=== PATIENT | male | born 1950 | race Caucasian/White ===

== ENCOUNTER 2019-11-03 13:07 | Outpatient (CLI) | payer OTHER, SELFPAY | END 2019-11-03 13:08 | disposition home or self-care (01) | LOC: ANHAUDIO 13:08 | PROVIDERS: PCP Emergency Medicine; Visit Provider Emergency Medicine | DX: Z01.10 Encounter for examination of ears and hearing without abnormal findings (principal); Z92.89 Personal history of other medical treatment; H90.3 Sensorineural hearing loss, bilateral | CPT/HCPCS: 92557; 92567 ==

== ENCOUNTER 2019-12-06 09:00 | Outpatient (RCR) | payer OTHER, SELFPAY | END 2019-12-06 23:59 | disposition home or self-care (01) | LOC: ANHAUDIO 09:00 | PROVIDERS: PCP Emergency Medicine; Visit Provider Emergency Medicine | DX: Z46.1 Encounter for fitting and adjustment of hearing aid (principal) | CPT/HCPCS: 99199; V5014; V5257 ==

== ENCOUNTER 2019-12-07 16:01 | Outpatient (CLI) | payer OTHER, SELFPAY ==
--- NOTE | ~2019-12-07 | XR_ITS ---
EXAMINATION: XR shoulder RT min 2V EXAM DATE: 12/07/2019 16:28 INDICATION: No known recent injury provided at this time. Pain of the right shoulder. TECHNIQUE: The following right shoulder projections obtained: frontal projection with internal rotati on, frontal projection with external rotation, Grashey, and scapular Y view (4+ views). There is no prior study for comparison. FINDINGS: No evidence of right shoulder rotator cuff calcific tendinosis. There is mild glenohumera l and acromioclavicular joint primary osteoarthritis. There are no acute fractures or dislocations id entified. There is no subcutaneous gas. The soft tissue is unremarkable. There are no radiopaque foreign bodies. IMPRESSION: Mild right shoulder osteoarthritis. Reviewed, dictated and finalized at location B.
--- NOTE | ~2019-12-07 | XR_ITS ---
EXAMINATION: XR chest 2V EXAM DATE: 12/07/2019 16:28 INDICATION: Circulatory signs and symptoms. Pacemaker. TECHNIQUE: Frontal and lateral projections of the chest obtained and reviewed. Comparison is made to prior examination from 05/01/2015. FINDINGS: There is single lead pacemaker/AICD device seen with tip projecting over the expected loca tion of right ventricle. The lungs are clear. There are no pleural effusions. The cardiomediastinal silhouette is within normal limits. There is no pneumothorax suspected. The bones and soft tissues are unremarkable. Compared to previous exam, improvement in previously seen abnormal reticulation which could've been pulmonary edema. IMPRESSION: No acute cardiopulmonary findings. Reviewed, dictated and finalized at location B.
== END 2019-12-07 16:02 | disposition home or self-care (01) ==
PROVIDERS: PCP Emergency Medicine; Visit Provider Emergency Medicine
DX: R09.89 Other specified symptoms and signs involving the circulatory and respiratory systems (principal); M25.511 Pain in right shoulder; M19.011 Primary osteoarthritis, right shoulder
CPT/HCPCS: 71046; 73030

== ENCOUNTER 2019-12-21 08:59 | Outpatient (CLI) | payer OTHER, SELFPAY ==
--- NOTE | ~2019-12-21 | CT_ITS ---
EXAMINATION: CT shoulder RT w con DATE: 12/21/2019 09:51 INDICATION: Right shoulder pain TECHNIQUE: High resolution computed tomography (CT) of the right shoulder was performed with 100 mL O mnipaque-350 intravenous contrast. Additional sagittal and coronal reconstructions were performed. Au tomated exposure control and iterative reconstruction technique were employed. The dose-length produc t was 340.15 mGy-cm. COMPARISON: Right shoulder radiographs dated 12/07/2019 FINDINGS: Bone alignment is normal. No fracture. Mild acromioclavicular and glenohumeral osteoarthritis. No gle nohumeral joint effusion. No asymmetric muscular atrophy at the right shoulder girdle. No abnormally enhancing lesions identified. Moderate facet osteoarthritis at the right side of the lower cervical s pine. No pathologically enlarged lymphadenopathy at the right axilla, right hilum or visualized right neck or mediastinum. Partially visualized cardiac pacemaker lead extending into the right atrium and which on cementer helper topogram appears to follow the course of the coronary sinus into a coronary vein over lying the lateral wall of the left ventricle. Mild dependent atelectasis in the dependent right upper , middle and lower lobes. IMPRESSION: 1. Mild right acromioclavicular and glenohumeral osteoarthritis. No joint effusion or acute osseous a bnormality. Reviewed, dictated and finalized at location B. IMPRESSION: 1. Mild right acromioclavicular and glenohumeral osteoarthritis. No joint effus ion or acute osseous abnormality.
[2019-12-21 09:40] LABS: Estimated Glomerular Filt Rate 60
== END 2019-12-21 09:00 | disposition home or self-care (01) ==
PROVIDERS: PCP Emergency Medicine; Visit Provider Emergency Medicine
DX: M19.011 Primary osteoarthritis, right shoulder (principal)
CPT/HCPCS: 73201; Q9967

== ENCOUNTER 2020-02-17 14:55 | Outpatient (RCR) | payer OTHER, SELFPAY | END 2020-02-17 23:59 | disposition home or self-care (01) | LOC: ANHAUDIO 14:55 | PROVIDERS: PCP Emergency Medicine; Visit Provider Emergency Medicine | DX: Z46.1 Encounter for fitting and adjustment of hearing aid (principal) | CPT/HCPCS: 99199 ==

== ENCOUNTER 2020-02-21 11:46 | Outpatient (CLI) | payer OTHER, SELFPAY ==
--- NOTE | ~2020-02-21 | US_ITS ---
EXAMINATION: US venous doppler LE RT EXAM DATE: 02/21/2020 13:10 INDICATION: M79.89 - Other specified soft tissue disorders EDEMA TECHNIQUE: Multiple grayscale, color flow and Doppler images of the right lower extremity deep venous system were obtained and reviewed. Comparison is made to prior examination from 08/15/2013. FINDINGS: The right common femoral, femoral and profunda veins demonstrate normal color flow, respira tory variation, augmentation and compressibility. Compressibility, color flow confirmed within the r ight popliteal, posterior tibial, peroneal, and greater saphenous veins. IMPRESSION: 1. No right lower extremity deep venous thrombosis. Reviewed, dictated and finalized at location B. LEAD
== END 2020-02-21 11:47 | disposition home or self-care (01) ==
PROVIDERS: PCP Emergency Medicine; Visit Provider Emergency Medicine
DX: M79.89 Other specified soft tissue disorders (principal)
CPT/HCPCS: 93971

== ENCOUNTER 2020-03-14 06:42 | Outpatient (NON) | payer OTHER, SELFPAY ==
[2020-03-16 21:25] LABS: SARS-CoV-2 RNA PCR Positive
== END 2020-03-14 06:43 ==
LOC: ANHCOVIDDT 07:08
PROVIDERS: PCP Emergency Medicine; Visit Provider Emergency Medicine
DX: U07.1 COVID-19 (principal)
CPT/HCPCS: 87635; C9803; U0003

== ENCOUNTER 2020-05-11 09:10 | Outpatient (CLI) | payer OTHER, SELFPAY ==
--- NOTE | ~2020-05-11 | CT_ITS ---
EXAMINATION: CT cervical spine wo con EXAM DATE: 05/11/2020 09:46 INDICATION: Cervical radiculopathy. TECHNIQUE: Spiral CT of the cervical spine was performed without contrast. Axial images were reviewe d. Coronal and sagittal reformatted images were also reviewed. The dose-length product (DLP) for thi s examination was 405.97 mGy-cm. The exposure was tailored according to patient size (auto mA exposu re control), and iterative reconstruction (ASIR) was used as additional dose reduction technique. ere is no prior study for comparison. FINDINGS: Mild cervical disc disease. Moderate to severe left C3-4 facet arthropathy. Less arthritis at other levels as below. The vertebral bodies are aligned in the AP dimension. There are no acute f ractures identified. The odontoid process is intact. The lateral masses of C1 line up with C2. Preve rtebral soft tissue and pre-dens space are within normal limits. Pacemaker/AICD device. Level by level evaluation: C2-C3: Disc does not extend beyond the endplate margin. Uncovertebral joint arthropathy: Mild left. Facet joint arthropathy: Mild bilateral. Neural foraminal stenosis: No stenosis. Central canal stenosis: No stenosis. C3-C4: Disc does not extend beyond the endplate margin. Uncovertebral joint arthropathy: Mild bilateral. Facet joint arthropathy: Moderate to severe left, mild right. Neural foraminal stenosis: Moderate left. Central canal stenosis: No stenosis. C4-C5: There is a minimal diffuse disc bulge. Uncovertebral joint arthropathy: Moderate bilateral. Facet joint arthropathy: Mild to moderate bilateral. Neural foraminal stenosis: No stenosis. Central canal stenosis: No stenosis. C5-C6: There is a mild diffuse disc bulge. Uncovertebral joint arthropathy: Mild bilateral. Facet joint arthropathy: Moderate bilateral. Neural foraminal stenosis: No stenosis. Central canal stenosis: No stenosis. C6-C7: Disc does not extend beyond the endplate margin. Uncovertebral joint arthropathy: Mild bilateral. Facet joint arthropathy: Mild bilateral. Neural foraminal stenosis: No stenosis. Central canal stenosis: No stenosis. C7-T1: Disc does not extend beyond the endplate margin. Uncovertebral joint arthropathy: None. Facet joint arthropathy: Mild to moderate bilateral. Neural foraminal stenosis: No stenosis. Central canal stenosis: No stenosis. IMPRESSION: 1. Advanced left C3-4 facet arthropathy with moderate left neural foraminal stenosis. 2. Less spondylosis at other levels. Reviewed, dictated and finalized at location A. AURANT ASSISTANT IMPRESSION: 1. Advanced left C3-4 facet arthropathy with moderate left neural foraminal st enosis. 2. Less spondylosis at other levels.
== END 2020-05-11 09:11 | disposition home or self-care (01) ==
PROVIDERS: PCP Emergency Medicine; Visit Provider Pain Medicine Pain Medicine
DX: M54.12 Radiculopathy, cervical region (principal)
CPT/HCPCS: 72125

== ENCOUNTER 2020-06-06 09:06 | Outpatient (CLI) | payer OTHER, SELFPAY ==
[2020-06-06 10:00] LABS: Prothrombin Time 13.8 Seconds (11.1-14.7)
== END 2020-06-06 09:07 | disposition home or self-care (01) ==
PROVIDERS: PCP Emergency Medicine; Visit Provider Nurse Practitioner Adult Health
DX: Z79.01 Long term (current) use of anticoagulants (principal)
CPT/HCPCS: 36415; 85610

== ENCOUNTER 2020-06-22 11:23 | Outpatient (RCR) | payer SELFPAY | END 2020-06-22 23:59 | disposition home or self-care (01) | LOC: ANHAUDIO 11:23 | PROVIDERS: PCP Emergency Medicine; Visit Provider Emergency Medicine | DX: Z46.1 Encounter for fitting and adjustment of hearing aid (principal) | CPT/HCPCS: 99199 ==

== ENCOUNTER 2021-01-07 17:56 | Emergency (ER) | payer OTHER, SELFPAY ==
[2021-01-07 18:20] VITALS: BP 144/62; PULSE 56; RESP 16; TEMP 36.4; O2SAT 100
[2021-01-07 20:20] VITALS: BP 122/70; PULSE 71; RESP 18; O2SAT 99
[2021-01-07 20:37] LABS: Add Urine Microscopic? YES; Appearance Urine Clear (Clear); Bilirubin Urine Negative (Negative); Blood Urine 1+ (Negative); Color Urine Yellow (Yellow); Glucose Urine UA Negative (Negative); Ketones Urine Negative (Negative); Leukocyte Esterase Ur Negative LEU/UL (Negative); Nitrate Urine Negative (Negative); Protein Urine Negative (Negative); RBC Urine 0-2 /hpf (0-2); Specific Grav Ur 1.013 (1.001-1.035); Urobilinogen Urine Negative mg/dL (<2.0); WBC Urine 0-3 /hpf
--- NOTE | 2021-01-07 21:34 | ED.GENADULT ---
HPI - General Adult General Chief complaint: Urogenital-Male Stated complaint: Constipation, unable to urinate Time Seen by Provider: 01/07/21 20:30 History of Present Illness HPI narrative: Patient is a 70-year-old gentleman presents the emergency department with chief complaint of constipation and urinary retention. The patient reports he just had surgery and a new lead was placed for his pacemaker. The patient states that he had noticed not had a bowel movement in several days and reached a point that he was unable to urinate. Patient states he started taking a stool softener without results and reports he feels as though he needs to have a bowel movement but just cannot get things moving. Patient denies vomiting denies abdominal pain states that he felt as though his bladder was about to explode. Related Data Home Medications Medication Instructions Recorded Confirmed aspirin 81 mg tablet,delayed 81 mg PO DAILY 04/01/19 04/03/20 release clopidogrel 75 mg tablet 75 mg PO DAILY 04/01/19 04/03/20 finasteride 5 mg tablet 5 mg PO DAILY 04/01/19 04/03/20 atorvastatin 20 mg tablet 20 mg PO DAILY 02/21/20 04/03/20 carvedilol 12.5 mg tablet See Rx Instructions .ROUTE .COMPLEX 02/21/20 04/03/20 evolocumab 140 mg/mL subcutaneous 140 mg SUBCUT MONTHLY ml 02/21/20 04/03/20 pen injector sacubitril 24 mg-valsartan 26 mg 1 tablet PO BID tablet 02/21/20 04/03/20 tablet Allergies Allergy/AdvReac Type Severity Reaction Status Date / Time No Known Allergies Allergy Verified 04/03/20 09:33 [facility] Past Medical History Medical History Cardiac defibrillator in place Cervical radiculopathy due to degenerative joint disease of spine Chest congestion Subacromial impingement of right shoulder Weight gain Surgical History Surgical History History of cardiac defibrillator placement Family History Family History Father Malignant neoplasm of prostate, Onset Age: 64 Mother Family history of dementia Other Heart disease Social History Social History Smoking packs per day: 1 Smoking cigarettes per day: 20.0 Years smoked: 30 Smoking pack-years: 30.00 Smoking status: Never smoker Smoking end date: 04/20/99 Alcohol intake: current Drinks per week: 2 Substance use: never Substance use type: does not use Exam Narrative: GENERAL: Well-appearing, well-nourished, and in no acute distress. HEAD: Normocephalic, atraumatic. EYES: PERRLA and EOMI. ENT: Nares clear, no rhinorrhea or epistaxis. Mucous membranes moist. NECK: Supple. CHEST: Clear to auscultation. No respiratory distress. HEART: Regular rate and rhythm. No murmur heard. Normal peripheral pulses. ABDOMEN: Soft, nontender, nondistended, normal active bowel sounds. : Rectal exam showed a large amount of stool in the rectal vault stool was manually disimpacted EXTREMITIES: Normal range of motion. No edema. SKIN: Warm, dry, no rash. NEURO: No focal deficits. Alert and oriented x3. PSYCH: Normal mood and affect. Course Course Emergency Course: Patient was found to have greater than a liter of urine present in the bladder a Hanna catheter was placed with good urinary return. The patient was able to have a large bowel movement in the emergency department and feels much better at this time Vital Signs Vital signs: Vital Signs Temperature 36.4 C 01/07/21 18:20 Pulse Rate 56 L 01/07/21 18:20 Respiratory Rate 16 01/07/21 18:20 Blood Pressure 144/62 H 01/07/21 18:20 Pulse Oximetry 100 01/07/21 18:20 Temperature 36.4 C 01/07/21 18:20 Pulse Rate 71 01/07/21 20:20 Respiratory Rate 18 01/07/21 20:20 Blood Pressure 122/70 01/07/21 20:20 Pulse Oximetry 99 01/07/21 20
[2021-01-07] MEDS: MAGNESIUM CITRATE 300 ML BTL PO (22:12)
[2021-01-07 22:13] VITALS: BP 116/78; PULSE 77; RESP 15; O2SAT 96
[2021-01-07 22:14] VITALS: BP 116/78; PULSE 77; RESP 15; O2SAT 96
== END 2021-01-07 22:16 | disposition home or self-care (01) ==
PROVIDERS: Emergency Medicine; Emergency Provider Emergency Medicine; PCP Emergency Medicine
DX: R33.9 Retention of urine, unspecified (principal); K56.41 Fecal impaction; Z79.82 Long term (current) use of aspirin; Z95.810 Presence of automatic (implantable) cardiac defibrillator; Z87.891 Personal history of nicotine dependence
CPT/HCPCS: 51702; 81001; 99283; A9270

== ENCOUNTER 2021-01-08 16:09 | Emergency (ER) | payer OTHER, SELFPAY ==
--- NOTE | ~2021-01-08 | CT_ITS ---
EXAMINATION: CT abdomen pelvis w con DATE: 01/08/2021 18:09 INDICATION: Abdominal pain TECHNIQUE: Computed tomography (CT) of the abdomen and pelvis was performed with 100 mL Omnipaque-350 intravenous contrast. Automated exposure control and iterative reconstruction technique were employe d. The dose-length product was 904.55 mGy-cm. COMPARISON: None FINDINGS: Mild emphysema and mild atelectasis/scarring at the dependent right lower lobe. 4 mm right middle lob e nodule. Heart size normal. No pericardial effusion. There are 2 cardiac pacemaker/AICD leads extend ing into the right ventricle. Small region of focal hepatic steatosis along the ligamentum teres. Gal lbladder, spleen, pancreas and bilateral adrenal glands are normal. Bilateral renal cysts, the larges t a parapelvic cyst on the left measuring 5.4 cm in maximal diameter. There are few scattered diverti cula predominantly along the sigmoid colon without adjacent from 3 change to suggest diverticulitis. Small bowel and appendix are normal. There is a Hanna catheter within the decompressed bladder. Marke d prostatomegaly. No free intraperitoneal gas or fluid. No pathologically enlarged abdominal or pelvi c lymphadenopathy. Small bilateral fat-containing inguinal hernias. There is calcified atherosclerosi s of the aorta and the lateral iliac arteries. Moderate lumbar spondylosis. IMPRESSION: 1. No acute intra-abdominal/pelvic process. 2. Mild diverticulosis. 3. Marked prostatomegaly. 4. Small bilateral fat-containing inguinal hernias. Reviewed, dictated and finalized at location A.
[2021-01-08 16:19] VITALS: BP 138/83; PULSE 86; RESP 16; TEMP 36.9; O2SAT 98
[2021-01-08 16:59] LABS: Basophils Percent Auto 0.1 % (0.2-1.2); Eosinophils Percent Auto 0.1 % (0-4.4); Hematocrit 44.4 % (42.0-52.0); Hemoglobin 15.1 g/dL (14.0-18.0); Immature Granulocyte Absolute 0.06 K/mm3 (0.00-0.031); Immature Granulocyte Percent A 0.4 % (0-0.5); Lymphocytes Absolute Auto 1.95 K/mm3 (0.9-3.2); Lymphocytes Percent Auto 12.7 % (18.3-44.2); Mean Corpuscular Hemoglobin 31.5 pg (26-34); Mean Corpuscular Volume 92.5 fl (80-100); Mean Platelet Volume 10.7 fl (7.4-10.4); Monocytes Percent Auto 6.3 % (2.6-8.5); Neutrophils Absolute Auto 12.4 K/mm3 (1.3-6.7); Neutrophils Percent Auto 80.4 % (45.5-73.1); Platelet Count Result 224 k/mm3 (150-375); White Blood Count 15.4 K/mm3 (4.5-10.0)
[2021-01-08 17:12] LABS: Alanine Aminotransferase 31 U/L (4-50); Albumin Level 4.6 g/dL (3.5-5.1); Alkaline Phosphatase 74 U/L (38-126); Anion Gap 10 mmol/L (8-16); Aspartate Amino Transferase 38 U/L (17-59); Bilirubin,Total 1.6 mg/dL (0.2-1.3); Blood Urea Nitrogen 19 mg/dL (9-20); Calcium 9.3 mg/dL (8.4-10.2); Carbon Dioxide 25 mmol/L (22-30); Chloride 98 mmol/L (98-107); Estimated CRCL calculation 43 ml/min; Estimated Glomerular Filt Rate 54; Glucose 148 mg/dL (65-110); Lactic Acid Reflex 1.6 mmol/L (0.7-2.1); Lipase 56 U/L (23-300); Partial Thromboplastin Time 26.4 SECONDS (22.3-36.8); Potassium 4.5 mmol/L (3.4-5.0); Prothrombin Time 13.2 Seconds (11.1-14.7); Sodium 133 mmol/L (137-145)
--- NOTE | 2021-01-08 17:18 | PC.NURSE ---
1710-PATIENT ARRIVED WITH #16 SOTO FROM YESTERDAY'S ER VISIT. PER ERP ORDER, SOTO REMOVED WITHOUT DIFFICULTY. #16 SOTO INSERTED WITHOUT DIFFICULTY. PATIENT TOLERATED WELL. PATIENT WITH IMMEDIATE RETURN OF 1100 CC OF DARK RED URINE. UPDATE TO ERP.
--- NOTE | 2021-01-08 17:58 | ED.GENADULT ---
HPI - General Adult General Chief complaint: Abdominal Pain Stated complaint: rectal bleeding &bleeding from kilgore catheter Time Seen by Provider: 01/08/21 16:12 History of Present Illness HPI narrative: Patient is a 70-year-old gentleman who presents the emergency department with chief complaint of blood in his Kilgore not draining Kilgore. Patient reports that he was seen in the ER yesterday for urinary retention and constipation patient was able to have a bowel movement and had a Kilgore catheter placed that had over a liter of urine in his bladder. The patient went home had multiple bowel movements and then noticed that his Kilgore catheter stopped working and noticed there was some blood around the catheter. The patient states that he had several bowel movements that have had some blood in them but mostly just more loose stool and has had about 40 bowel movements after receiving magnesium citrate to help clear them out. Patient denies vomiting Related Data Home Medications Medication Instructions Recorded Confirmed aspirin 81 mg tablet,delayed 81 mg PO DAILY 04/01/19 04/03/20 release clopidogrel 75 mg tablet 75 mg PO DAILY 04/01/19 04/03/20 finasteride 5 mg tablet 5 mg PO DAILY 04/01/19 04/03/20 atorvastatin 20 mg tablet 20 mg PO DAILY 02/21/20 04/03/20 carvedilol 12.5 mg tablet See Rx Instructions .ROUTE .COMPLEX 02/21/20 04/03/20 evolocumab 140 mg/mL subcutaneous 140 mg SUBCUT MONTHLY ml 02/21/20 04/03/20 pen injector sacubitril 24 mg-valsartan 26 mg 1 tablet PO BID tablet 02/21/20 04/03/20 tablet Allergies Allergy/AdvReac Type Severity Reaction Status Date / Time No Known Allergies Allergy Verified 04/03/20 09:33 Review of Systems Review of Systems: A 10 system review of systems was completed on the patient and is negative except for what is stated in the HPI. Nursing and ancillary documentation was reviewed. [facility] Past Medical History Medical History Cardiac defibrillator in place Cervical radiculopathy due to degenerative joint disease of spine Chest congestion Subacromial impingement of right shoulder Weight gain Surgical History Surgical History History of cardiac defibrillator placement Family History Family History Father Malignant neoplasm of prostate, Onset Age: 64 Mother Family history of dementia Other Heart disease Social History Social History Smoking packs per day: 1 Smoking cigarettes per day: 20.0 Years smoked: 30 Smoking pack-years: 30.00 Smoking status: Never smoker Smoking end date: 04/20/99 Alcohol intake: current Drinks per week: 2 Substance use: never Substance use type: does not use Exam Narrative: GENERAL: Well-appearing, well-nourished, and in no acute distress. HEAD: Normocephalic, atraumatic. EYES: PERRLA and EOMI. ENT: Nares clear, no rhinorrhea or epistaxis. Mucous membranes moist. NECK: Supple. CHEST: Clear to auscultation. No respiratory distress. HEART: Regular rate and rhythm. No murmur heard. Normal peripheral pulses. ABDOMEN: Soft, nontender, distended bladder, normal active bowel sounds. EXTREMITIES: Normal range of motion. No edema. SKIN: Warm, dry, no rash. NEURO: No focal deficits. Alert and oriented x3. PSYCH: Normal mood and affect. Course Course Emergency Course: The patient's catheter was changed out due to significant urinary retention and appeared to be clogged Kilgore. The patient had immediate relief after the clogged Kilgore was changed the patient had some slight hematuria that subsequently has changed to a pink lemonade-stephanie color. Patient's INR is within normal limits Rectal exam showed light brown stool without gross melena or hematochezia Vital Signs Vi
[2021-01-08 19:29] VITALS: BP 120/71; PULSE 82; RESP 16; O2SAT 98
[2021-01-08 20:55] VITALS: BP 112/64; PULSE 80; RESP 14; O2SAT 97
== END 2021-01-08 20:54 | disposition home or self-care (01) ==
PROVIDERS: Emergency Provider Emergency Medicine; PCP Emergency Medicine
DX: T83.011A Breakdown (mechanical) of indwelling urethral catheter, initial encounter (principal); R31.9 Hematuria, unspecified; Z87.891 Personal history of nicotine dependence
CPT/HCPCS: 36415; 74177; 80053; 83605; 83690; 85025; 85610; 85730; 99284; Q9967

== ENCOUNTER 2021-03-25 08:16 | Outpatient (RCR) | payer OTHER, SELFPAY | END 2021-03-25 23:59 | disposition home or self-care (01) | LOC: ANHAUDIO 08:16 | PROVIDERS: PCP Emergency Medicine; Visit Provider Emergency Medicine | DX: Z46.1 Encounter for fitting and adjustment of hearing aid (principal) | CPT/HCPCS: 99199 ==

== ENCOUNTER 2021-11-04 07:56 | Outpatient (CLI) | payer OTHER, SELFPAY | END 2021-11-04 07:57 | disposition home or self-care (01) | LOC: ANHAUDIO 07:57 | PROVIDERS: PCP Emergency Medicine; Visit Provider Emergency Medicine | DX: H91.90 Unspecified hearing loss, unspecified ear (principal) | CPT/HCPCS: 92557; 92567 ==

== ENCOUNTER 2021-11-26 07:54 | Outpatient (RCR) | payer OTHER, SELFPAY | END 2021-11-26 23:59 | disposition home or self-care (01) | LOC: ANHAUDIO 07:54 | PROVIDERS: PCP Emergency Medicine; Visit Provider Emergency Medicine | DX: Z46.1 Encounter for fitting and adjustment of hearing aid (principal) | CPT/HCPCS: V5257 ==

== ENCOUNTER 2022-07-31 13:56 | Outpatient (CLI) | payer MEDICARE, SELFPAY | END 2022-07-31 13:57 | disposition home or self-care (01) | LOC: ANHAUDIO 13:56 | PROVIDERS: PCP Emergency Medicine; Visit Provider Emergency Medicine | DX: H91.90 Unspecified hearing loss, unspecified ear (principal) | CPT/HCPCS: 92557; 92567 ==

== ENCOUNTER 2022-08-02 08:59 | Emergency (ER) | payer MEDICARE, SELFPAY ==
[2022-08-02 09:18] VITALS: BP 120/66; PULSE 60; RESP 12; TEMP 36.6; O2SAT 99
--- NOTE | 2022-08-02 09:19 | ED.URI ---
HPI - URI/Sore Throat General Chief Complaint: Upper Respiratory Infection Stated Complaint: Cough Source: patient and RN notes reviewed History of Present Illness HPI Narrative: 72-year-old male presents to urgent care with complaints of a productive cough x1 week. Patient states his cough is worse at nighttime when he lays down. Patient states he does not have a cough as long as he is sitting upright. Denies any fevers or chills. Patient reports some shortness of breath when he is coughing. Denies any chest pain, vomiting, or sore throat. Patient is currently on day 3 of azithromycin, prescribed by his primary care physician. Some parts of this dictation were generated by voice recognition software and may contain typographical and/or grammatical inaccuracies. Related Data Home Medications Medication Instructions Recorded Confirmed aspirin 81 mg tablet,delayed 81 mg PO DAILY 04/01/19 08/02/22 release (Sanaz Low Dose Aspirin) clopidogrel 75 mg tablet 75 mg PO DAILY 04/01/19 08/02/22 finasteride 5 mg tablet 5 mg PO DAILY 04/01/19 08/02/22 atorvastatin 20 mg tablet 20 mg PO DAILY 02/21/20 08/02/22 carvedilol 12.5 mg tablet See Rx Instructions .Route .COMPLEX 02/21/20 08/02/22 evolocumab 140 mg/mL subcutaneous 140 mg subcut MONTHLY 02/21/20 08/02/22 pen injector (Repatha SureClick) sacubitril 24 mg-valsartan 26 mg 1 tablet PO BID 02/21/20 08/02/22 tablet (Entresto) Allergies Allergy/AdvReac Type Severity Reaction Status Date / Time No Known Allergies Allergy Verified 08/02/22 09:26 Review of Systems Review of Systems: Pertinent positives and pertinent negatives per HPI. [facility] Past Medical History Medical History Cardiac defibrillator in place Cervical radiculopathy due to degenerative joint disease of spine Chest congestion Subacromial impingement of right shoulder Weight gain Surgical History Surgical History History of cardiac defibrillator placement Family History Family History Father Malignant neoplasm of prostate, Onset Age: 64 Mother Family history of dementia Other Heart disease Social History Social History Smoking packs per day: 1 Smoking cigarettes per day: 20.0 Years smoked: 30 Smoking pack-years: 30.00 Smoking status: Former smoker Tobacco type: cigarettes Smoking end date: 04/20/99 Alcohol intake: current Drinks per week: 2 Substance use: never Substance use type: does not use Comments At the time of my signature, I reviewed and agree with the nursing past medical, surgical, social, and family history. There is no relevant family history pertinent to the patient complaint. Exam Narrative: GENERAL: This is a well-nourished, well-developed patient, in no apparent distress. HEAD: normocephalic, atraumatic. EYES: Sclera clear/white. Vision is grossly intact. EARS: External ears normal, auditory canals clear and without drainage. Hearing grossly intact. NOSE: External nose normal with no obvious nasal discharge, nares without redness, no rhinorrhea. THROAT: Mucous membranes moist, posterior pharynx clear. NECK: Neck supple, non-tender without lymphadenopathy, masses or thyromegaly. CARDIOVASCULAR: Regular rate and rhythm without murmurs, gallops, or rubs. RESPIRATORY: Clear to auscultation. Breath sounds equal bilaterally. No wheezes, rales, or rhonchi. GASTROINTESTINAL: Abdomen soft, non-tender, nondistended. Bowel sounds are active. No hepato-splenomegaly, or palpable masses. No guarding. SKIN: warm, intact with no suspicious lesions or rash, good texture and turgor. NEURO: awake, alert, and oriented to person, place and time. There were no obvious focal neurologic abnormalities. Course Course Level of Care: E
[2022-08-02] MEDS: predniSONE 20 MG TABLET 60 MG PO (10:03)
== END 2022-08-02 10:05 | disposition home or self-care (01) ==
PROVIDERS: Emergency Provider Nurse Practitioner Family; PCP Emergency Medicine
DX: J40 Bronchitis, not specified as acute or chronic (principal); Z87.891 Personal history of nicotine dependence; Z95.810 Presence of automatic (implantable) cardiac defibrillator
CPT/HCPCS: 99213; G0463; J7512

== ENCOUNTER 2022-12-23 12:00 | Outpatient (RCR) | payer MEDICARE, SELFPAY | END 2023-01-27 23:59 | disposition home or self-care (01) | LOC: ANHAUDASC 12:00 | PROVIDERS: PCP Emergency Medicine; Visit Provider Emergency Medicine | DX: Z46.1 Encounter for fitting and adjustment of hearing aid (principal) | CPT/HCPCS: 99199; V5261 ==

== ENCOUNTER 2023-04-17 03:54 | Day surgery (SDC) | payer MEDICARE, SELFPAY ==
[2023-04-09 11:36] VITALS: BMI 28.1
--- NOTE | 2023-04-09 12:08 | PC.NURSE ---
Spoke with __PATIENT__ regarding medication _PLAVIX . Pt. verbalizes understanding that the last dose of ___PLAVIX is to be taken on __04/12/2023 and the Endoscopist will instruct them when to restart after the procedure.
--- NOTE | 2023-04-15 09:25 | SUR.PREOP ---
Patient called regarding upcoming procedure. Reviewed preop instructions, appointment times, and procedure prep.
--- NOTE | 2023-04-16 13:25 | PC.NURSE ---
Chart reviewed by Dr. Pelaez and kati to proceed with procedure 04/17/2023.
--- NOTE | 2023-04-16 16:23 | PM.HPGS ---
History of Present Illness History of Present Illness Consent: Risks, benefits, and alternatives have been discussed and questions answered. Patient agrees to proceed with procedure. Chief complaint: HX colon polyps Narrative: Eagle Coronel is a 73 year old male referred for colon cancer screening. He has history of polyps. Most recently he had polyps removed 5 years ago. Review of Systems Review of Systems: All systems reviewed & are unremarkable except as noted in HPI and below PMFSH Past Medical History Medical History Cardiac defibrillator in place Cervical radiculopathy due to degenerative joint disease of spine Chest congestion Sinus congestion Subacromial impingement of right shoulder Weight gain Surgical History Surgical History History of cardiac defibrillator placement Family History Family History Father Malignant neoplasm of prostate, Onset Age: 64 Mother Family history of dementia Other Heart disease Social History Social History Smoking packs per day: 1 Smoking cigarettes per day: 20.0 Years smoked: 30 Smoking pack-years: 30.00 Smoking status: Former smoker Tobacco type: cigarettes Smoking end date: 04/20/99 Alcohol intake: current Drinks per week: 4 Alcohol use details: BEERS Substance use: never Substance use type: does not use Current Housing: Decline to Answer Concerned About Future Housing: Decline to Answer Difficulty Paying Gas/Electric Bills: Decline to Answer Difficulty Paying for Meds: Decline to Answer Currently Unemployed: Decline to Answer Education: Decline to Answer Difficulty w/ Childcare or Family Care: Decline to Answer Living arrangements: alone Spiritual care concerns: No Meds Home Medications and Allergies Home Medications Medication Instructions Recorded Confirmed Type clopidogrel 75 mg tablet 75 mg PO DAILY 04/01/19 04/17/23 History finasteride 5 mg tablet 5 mg PO DAILY 04/01/19 04/09/23 History atorvastatin 20 mg tablet 20 mg PO DAILY 02/21/20 04/09/23 History carvedilol 12.5 mg tablet See Rx Instructions .Route .COMPLEX 02/21/20 04/09/23 History evolocumab 140 mg/mL subcutaneous 140 mg subcut MONTHLY 02/21/20 04/09/23 History pen injector (Repatha SureClick) sacubitril 24 mg-valsartan 26 mg 1 tablet PO BID 02/21/20 04/09/23 History tablet (Entresto) alirocumab 75 mg/mL subcutaneous 75 mg subcut Q14D 04/09/23 04/09/23 History pen injector (Praluent Pen) empagliflozin 10 mg tablet 10 mg PO DAILY 04/09/23 04/09/23 History (Jardiance) Allergies Allergy/AdvReac Type Severity Reaction Status Date / Time No Known Allergies Allergy Verified 04/17/23 08:21 Exam Const: General: alert Orientation/consciousness: patient oriented x3 Resp: Auscultation: clear to auscultation bilaterally Cardio: Rhythm: regular rhythm GI: GI Palp: Yes Soft to palpation and No Tenderness to palpation present (GI) Neuro: General: patient oriented x3 Assessment and Plan Assessment and plan (1) Colon cancer screening: Code(s): Z12.11 - Encounter for screening for malignant neoplasm of colon Status: Acute Assessment and Plan: Colonoscopy with possible biopsy or polypectomy or cautery or injection of substances.
[2023-04-17 08:25] VITALS: BP 133/77; PULSE 65; RESP 20; TEMP 36.2; O2SAT 99
[2023-04-17] MEDS: LACTATED RINGERS 1,000 ML 150 ML IV CONT (08:39)
--- NOTE | 2023-04-17 08:41 | SUR.PREOP ---
Patient's last dose of Plavix was on 04/15/23. Dr. Carranza notified and okay to go ahead with colonoscopy
--- NOTE | 2023-04-17 09:06 | WPDANESEPPF ---
Anes - Initial Pre Proc Eval Procedure: Operation Date: 04/17/23 09:30 Proposed Procedures p Colonoscopy - Suraj Carranza MD Date/Time: 04/17/23 09:06 Surgeon: Suraj Carranza MD Pre Op Diagnosis: HX colon polyps Patient Data Age: 73 Gender: M Height: 1.73 m Weight: 84.6 kg Last Vital Signs Temp 97.1 F L 04/17/23 08:25 Pulse 65 04/17/23 08:25 Resp 20 04/17/23 08:25 BP 133/77 04/17/23 08:25 Pulse Ox 99 04/17/23 08:25 O2 Del Method Room Air 04/17/23 08:25 Allergies Allergy/AdvReac Type Severity Reaction Status Date / Time No Known Allergies Allergy Verified 04/17/23 08:21 Home Medications Medication Instructions Recorded Confirmed Type clopidogrel 75 mg tablet 75 mg PO DAILY 04/01/19 04/17/23 History finasteride 5 mg tablet 5 mg PO DAILY 04/01/19 04/09/23 History atorvastatin 20 mg tablet 20 mg PO DAILY 02/21/20 04/09/23 History carvedilol 12.5 mg tablet See Rx Instructions .Route .COMPLEX 02/21/20 04/09/23 History evolocumab 140 mg/mL subcutaneous 140 mg subcut MONTHLY 02/21/20 04/09/23 History pen injector (Repatha SureClick) sacubitril 24 mg-valsartan 26 mg 1 tablet PO BID 02/21/20 04/09/23 History tablet (Entresto) alirocumab 75 mg/mL subcutaneous 75 mg subcut Q14D 04/09/23 04/09/23 History pen injector (Praluent Pen) empagliflozin 10 mg tablet 10 mg PO DAILY 04/09/23 04/09/23 History (Jardiance) Patient hx anesthesia problems: none Family hx anesthesia problems: none Results Review: All pre-operative results and documents have been reviewed as part of the pre-operative evaluation. [facility] Past Medical History Medical History Cardiac defibrillator in place Cervical radiculopathy due to degenerative joint disease of spine Chest congestion Sinus congestion Subacromial impingement of right shoulder Weight gain Surgical History Surgical History History of cardiac defibrillator placement Family History Family History Father Malignant neoplasm of prostate, Onset Age: 64 Mother Family history of dementia Other Heart disease Social History Social History Smoking packs per day: 1 Smoking cigarettes per day: 20.0 Years smoked: 30 Smoking pack-years: 30.00 Smoking status: Former smoker Tobacco type: cigarettes Smoking end date: 04/20/99 Alcohol intake: current Drinks per week: 4 Alcohol use details: BEERS Substance use: never Substance use type: does not use Current Housing: Decline to Answer Concerned About Future Housing: Decline to Answer Difficulty Paying Gas/Electric Bills: Decline to Answer Difficulty Paying for Meds: Decline to Answer Currently Unemployed: Decline to Answer Education: Decline to Answer Difficulty w/ Childcare or Family Care: Decline to Answer Living arrangements: alone Spiritual care concerns: No Anes - Eval Final PreProcedure Day of Procedure 04/17/23 09:06 Patient weight: normal Heart: regular rate and rhythm Lungs: clear to auscultation Airway: Mallampati scale class II Neurological: alert and oriented Last oral intake: >/= 8 hours ASA classification: III Emergent: no Anesthetic plan: proceed Anesthesia type and monitoring: general GIVS and standard monitoring Results Review: All pre-operative results and documents have been reviewed as part of the pre-operative evaluation. Informed Consent: The patient's anesthetic plan and its attendant risks and benefits were discussed with the patient/family/POA. Questions were solicited and answers provided to the satisfaction of the patient/family/POA.
[2023-04-17 09:44] VITALS: BP 91/57; PULSE 62; RESP 22; O2SAT 94
[2023-04-17 09:54] VITALS: BP 93/59; PULSE 60; RESP 25; O2SAT 93
== END 2023-04-17 10:14 | disposition home or self-care (01) ==
PROVIDERS: PCP Emergency Medicine; Visit Provider Internal Medicine Gastroenterology
PROC: 0DJD8ZZ Inspection of Lower Intestinal Tract, Via Natural or Artificial Opening Endoscopic (ICD-10-PCS; CPT 45378; principal; 2023-04-17 09:30)
DX: Z12.11 Encounter for screening for malignant neoplasm of colon (principal); D12.0 Benign neoplasm of cecum; K57.30 Diverticulosis of large intestine without perforation or abscess without bleeding; Z87.891 Personal history of nicotine dependence
CPT/HCPCS: 45385; 88305; J2704; J7120

== ENCOUNTER 2023-04-27 10:11 | Outpatient (CLI) | payer MEDICARE, SELFPAY ==
--- NOTE | ~2023-04-27 | XR_ITS ---
AP view of the pelvis and AP and lateral views of the right hip Clinical history: Pain Findings: No acute fracture or dislocation is seen. Osseous alignment is anatomic. Bilateral hip and SI joint spaces are preserved. Soft tissues are unremarkable. Impression: No significant abnormality is seen. Reviewed, dictated and finalized at [facility]. [employer] Impression: No significant abnormality is seen.
== END 2023-04-27 10:12 | disposition home or self-care (01) ==
PROVIDERS: PCP Emergency Medicine; Visit Provider Emergency Medicine
DX: M25.551 Pain in right hip (principal)
CPT/HCPCS: 73502

== ENCOUNTER 2023-07-24 07:11 | Outpatient (CLI) | payer MEDICARE, SELFPAY ==
--- NOTE | ~2023-07-24 | XR_ITS ---
XR lumbar spine 2-3V DATE: 07/24/2023 07:29 INDICATION: Low back pain, right sciatica TECHNIQUE: AP, lateral, coned lateral lumbosacral views COMPARISON: 05/19/2018 lumbar spine FINDINGS: There is moderate degenerative disc disease throughout the lumbar spine with associated mil d retrolisthesis at L2-3. Prominent bridging osteophyte on the left at L2-3. No anterolisthesis. No fracture or bone destruction is evident. The included lower thoracic and lumbar pedicles are intac t. The sacroiliac joints are unremarkable other than some adjacent sclerosis consistent with degenerativ e change. IMPRESSION: Multilevel moderate degenerative disc disease of the lumbar spine; little interval change since 05/19/2018 Reviewed, dictated and finalized at location B.
== END 2023-07-24 07:12 | disposition home or self-care (01) ==
PROVIDERS: PCP Emergency Medicine; Visit Provider Emergency Medicine
DX: M51.36 Other intervertebral disc degeneration, lumbar region (principal)
CPT/HCPCS: 72100

== ENCOUNTER 2023-10-20 12:25 | Outpatient (CLI) | payer MEDICARE, SELFPAY ==
--- NOTE | ~2023-10-20 | XR_ITS ---
EXAMINATION: XR thoracic spine 2V DATE: 10/20/2023 12:48 INDICATION: Back pain. TECHNIQUE: 3 views of thoracic spine were obtained. COMPARISON: None. FINDINGS: There is 5 degrees dextrocurvature of thoracic spine. Vertebral body heights are normal. Th ere is mildly decreased disc height at T8-T9. There are endplate osteophytes at multiple levels. Ther e is a left chest pacer/defibrillator with 2 leads in right ventricle. IMPRESSION: 1. Mild thoracic spondylosis. Reviewed, dictated and finalized at location A.
--- NOTE | ~2023-10-20 | XR_ITS ---
EXAMINATION: XR lumbar spine 2-3V DATE: 10/20/2023 12:48 INDICATION: Left-sided dorsalgia. TECHNIQUE: 3 views of lumbar spine were obtained. COMPARISON: Lumbar spine radiographs 07/24/2023 FINDINGS: There is 3 degrees dextrocurvature lumbar spine. There is 3 mm additional listhesis of L2 o n L3. There is mild chronic anterior wedging of T12 vertebral body. There is mildly decreased disc he ight at L1-L2, moderately decreased disc height at L2-L3, L3-L4, and L4-L5, and severely decreased di sc height at L5-S1. There is multilevel facet joint osteoarthritis, severe in lower lumbar spine. IMPRESSION: 1. Severe lower lumbar spondylosis. Reviewed, dictated and finalized at location A.
== END 2023-10-20 12:26 | disposition home or self-care (01) ==
LOC: ANHIMG 12:28
PROVIDERS: PCP Emergency Medicine; Visit Provider Emergency Medicine
DX: M47.896 Other spondylosis, lumbar region (principal); M47.894 Other spondylosis, thoracic region
CPT/HCPCS: 72070; 72100

== ENCOUNTER 2023-11-05 09:22 | Outpatient (CLI) | payer MEDICARE, SELFPAY ==
--- NOTE | ~2023-11-05 | XR_ITS ---
EXAMINATION: XR chest 2V 11/05/2023 09:40 INDICATION: Shortness of breath PROCEDURE: PA and lateral views of the chest COMPARISON: Comparison to multiple prior studies sequentially, with oldest reviewed study dated 05/06. FINDINGS: The lungs are clear. The cardiomediastinal silhouette is within normal limits. There are no pleural effusions. There is no pneumothorax suspected. Heart size normal. Pacemaker leads are in expected position.. IMPRESSION: 1: NO ACUTE CARDIOPULMONARY DISEASE. Reviewed, dictated and finalized at location B.
== END 2023-11-05 09:23 | disposition home or self-care (01) ==
PROVIDERS: PCP Emergency Medicine; Visit Provider Emergency Medicine
DX: R09.89 Other specified symptoms and signs involving the circulatory and respiratory systems (principal); Z95.0 Presence of cardiac pacemaker
CPT/HCPCS: 71046

== ENCOUNTER 2023-12-07 11:16 | Outpatient (CLI) | payer MEDICARE, SELFPAY ==
[2023-12-07 12:08] LABS: Basophils Percent Auto 0.4 % (0.2-1.2); Eosinophils Absolute Auto 0.2 K/mm3 (0-0.3); Eosinophils Percent Auto 2.5 % (0-4.4); Hematocrit 30.2 % (42.0-52.0); Immature Granulocyte Absolute 0.02 K/mm3 (0.00-0.031); Immature Granulocyte Percent A 0.2 % (0-0.5); Lymphocytes Absolute Auto 2.26 K/mm3 (0.9-3.2); Lymphocytes Percent Auto 25.4 % (18.3-44.2); Mean Corpuscular HGB Conc 29.8 g/dl (32-36); Mean Corpuscular Hemoglobin 25.4 pg (26-34); Mean Corpuscular Volume 85.3 fl (80-100); Mean Platelet Volume 11.2 fl (7.4-10.4); Monocytes Absolute Auto 0.7 K/mm3 (0.1-0.6); Neutrophils Absolute Auto 5.7 K/mm3 (1.3-6.7); Neutrophils Percent Auto 63.5 % (45.5-73.1); Platelet Count Result 288 k/mm3 (150-375); Red Blood Count 3.54 M/mm3 (4.6-6.20); Red Cell Distribution Width 15.3 % (11.5-14.5); White Blood Count 8.9 K/mm3 (4.5-10.0)
[2023-12-07 12:15] LABS: Alanine Aminotransferase 18 U/L (6-50); Albumin Level 3.9 g/dL (3.5-5.1); Alkaline Phosphatase 51 U/L (38-126); Anion Gap 9 mmol/L (4-12); Aspartate Amino Transferase 28 U/L (17-59); Bilirubin,Total 0.6 mg/dL (0.2-1.3); Blood Urea Nitrogen 15 mg/dL (9-20); Calcium 8.9 mg/dL (8.4-10.2); Carbon Dioxide 22 mmol/L (22-30); Chloride 107 mmol/L (98-107); Estimated Glomerular Filt Rate 54; Glucose 115 mg/dL (65-110); Potassium 4.9 mmol/L (3.4-5.0); Sodium 138 mmol/L (137-145)
[2023-12-07 12:45] LABS: Anisocytosis 1+; Hypochromasia 1+; Platelet Estimate Adequate (Adequate); Schistocytes None Seen
== END 2023-12-07 11:17 | disposition home or self-care (01) ==
LOC: ANHLAB 11:38
PROVIDERS: PCP Emergency Medicine; Visit Provider Internal Medicine Cardiovascular Disease
DX: I25.10 Atherosclerotic heart disease of native coronary artery without angina pectoris (principal); I25.9 Chronic ischemic heart disease, unspecified; Z01.810 Encounter for preprocedural cardiovascular examination
CPT/HCPCS: 36415; 80053; 85025

== ENCOUNTER 2023-12-10 10:21 | Outpatient (CLI) | payer MEDICARE, SELFPAY ==
[2023-12-10 11:26] LABS: Iron 19 ug/dL (49-181)
[2023-12-10 11:37] LABS: Percent Iron Saturation 4 % (20-50)
[2023-12-10 12:03] LABS: Ferritin 5.61 ng/mL (11.1-264)
[2023-12-10 12:30] LABS: Folic Acid 5.6 ng/mL (2.76->20)
== END 2023-12-10 10:22 | disposition home or self-care (01) ==
PROVIDERS: PCP Emergency Medicine; Visit Provider Nurse Practitioner Family
DX: I50.22 Chronic systolic (congestive) heart failure (principal); D64.9 Anemia, unspecified
CPT/HCPCS: 36415; 82607; 82728; 82746; 83540; 83550

== ENCOUNTER 2023-12-24 02:35 | Day surgery (SDC) | payer MEDICARE, SELFPAY ==
[2023-12-16 15:04] VITALS: BMI 29.2
--- NOTE | 2023-12-18 10:02 | PC.NURSE ---
Chart reviewed with Dr. Pelaez anesthesia and okay to proceed. Orders received for CBC stat am of procedure. Spoke with patient regarding medication Plavix. Pt. verbalizes understanding that the last dose of Plavix is to be taken on 12/19/2023 and the Endoscopist will instruct them when to restart after the procedure. Patient holding Iron as of today 12/18/2023.
[2023-12-24 11:09] LABS: Hematocrit 36.2 % (42.0-52.0); Hemoglobin 10.7 g/dL (14.0-18.0); Mean Corpuscular HGB Conc 29.6 g/dl (32-36); Mean Corpuscular Hemoglobin 25.1 pg (26-34); Mean Platelet Volume 11.3 fl (7.4-10.4); Platelet Count Result 302 k/mm3 (150-375); Red Blood Count 4.26 M/mm3 (4.6-6.20); Red Cell Distribution Width 18.6 % (11.5-14.5); White Blood Count 7.1 K/mm3 (4.5-10.0)
[2023-12-24 11:16] VITALS: BP 103/62; PULSE 56; RESP 20; TEMP 36.7; O2SAT 98
[2023-12-24] MEDS: LACTATED RINGERS 1,000 ML 150 ML IV CONT (11:19)
--- NOTE | 2023-12-24 11:43 | WPDANESEPPF ---
Anes - Initial Pre Proc Eval Procedure: Operation Date: 12/24/23 14:30 Proposed Procedures p Esophagogastroduodenoscopy & Colonoscopy - Miguel Betancourt MD Date/Time: 12/24/23 11:43 Surgeon: Miguel Betancourt MD Pre Op Diagnosis: melena, anemia Patient Data Age: 73 Gender: M Height: 1.73 m Weight: 83.9 kg Last Vital Signs Temp 98.0 F 12/24/23 11:16 Pulse 56 L 12/24/23 11:16 Resp 20 12/24/23 11:16 BP 103/62 12/24/23 11:16 Pulse Ox 98 12/24/23 11:16 O2 Del Method Room Air 12/24/23 11:16 Allergies Allergy/AdvReac Type Severity Reaction Status Date / Time No Known Allergies Allergy Verified 12/24/23 11:12 Home Medications Medication Instructions Recorded Confirmed Type clopidogrel 75 mg tablet 75 mg PO DAILY 04/01/19 12/24/23 History finasteride 5 mg tablet 5 mg PO DAILY 04/01/19 12/24/23 History atorvastatin 20 mg tablet 20 mg PO DAILY 02/21/20 12/24/23 History carvedilol 12.5 mg tablet See Rx Instructions .Route .COMPLEX 02/21/20 12/24/23 History evolocumab 140 mg/mL subcutaneous 140 mg subcut [id number] 02/21/20 12/24/23 History pen injector (Repatha SureClick) empagliflozin 10 mg tablet 10 mg PO DAILY 04/09/23 12/24/23 History (Jardiance) ferrous sulfate 325 mg (65 mg 325 mg PO DAILY 1 month #30 tabs 12/11/23 12/24/23 Rx iron) tablet aspirin 81 mg tablet,delayed 81 mg PO DAILY 12/16/23 12/24/23 History release (Adult Low Dose Aspirin) sacubitril 49 mg-valsartan 51 mg 1 tablet PO BID 12/16/23 12/24/23 History tablet (Entresto) Laboratory Tests 12/24/23 10:55 WBC 7.1 K/mm3 (4.5-10.0) RBC 4.26 L M/mm3 (4.6-6.20) Hgb 10.7 L g/dL (14.0-18.0) Hct 36.2 L % (42.0-52.0) MCV 85.0 fl (80-100) MCH 25.1 L pg (26-34) MCHC 29.6 L g/dl (32-36) RDW 18.6 H % (11.5-14.5) Plt Count 302 k/mm3 (150-375) MPV 11.3 H fl (7.4-10.4) Patient hx anesthesia problems: none Family hx anesthesia problems: none Results Review: All pre-operative results and documents have been reviewed as part of the pre-operative evaluation. [facility] Past Medical History Medical History (Updated 12/10/23 @ 10:00 by Gricelda Herzog, STEPHANIE-C) Abrasion of forearm without infection Acute left-sided low back pain with left-sided sciatica Acute non-recurrent maxillary sinusitis Acute viral sinusitis Anemia ASHD (arteriosclerotic heart disease) Cardiac defibrillator in place Cardiac defibrillator in place Cervical radiculopathy due to degenerative joint disease of spine Chest congestion Chronic systolic congestive heart failure Generalized abdominal pain HTN (hypertension), benign Hyperglycemia Ischemic cardiomyopathy Jerking, massive myoclonic Keratosis Left hip pain Melena Mixed hyperlipidemia PARAMJIT on CPAP Patient had no falls in past year Rotator cuff arthropathy of left shoulder Seasonal allergies Sinus congestion Subacromial impingement of right shoulder Vitamin D deficiency Weight gain Surgical History Surgical History History of cardiac defibrillator placement Hx of heart artery stent Family History Family History Father Malignant neoplasm of prostate, Onset Age: 64 Mother Family history of dementia Other Heart disease Social History Social History Smoking packs per day: 1 Smoking cigarettes per day: 20.0 Years smoked: 30 Smoking pack-years: 30.00 Smoking status: Former smoker Tobacco type: cigarettes Smoking end date: 04/20/99 Alcohol intake: current Drinks per week: 4 Alcohol use details: BEERS Substance use: never Substance use type: does not use Do You Feel Safe in your Home?: Yes Lack of Transportation: No Lack of Food: Never True Current Housing: I Have Housing Concerned About Futur
--- NOTE | 2023-12-24 11:56 | WPDHPUPDATE1 ---
History and Physical Update Update Date/Time: 12/24/23 11:56 History and Physical has been reviewed, including an updated exam of the patient. There are NO changes in the patient's condition. Risks, benefits, and alternatives have been discussed and questions answered. Patient agrees to proceed with procedure.
--- NOTE | 2023-12-24 12:25 | SUR.OPER ---
EGD START 1205, END 1208 COLONOSCOPY START 1214, END 1224
[2023-12-24 12:28] VITALS: BP 90/56; PULSE 50; RESP 18; O2SAT 97
[2023-12-24 12:38] VITALS: BP 107/65; PULSE 53; RESP 18; O2SAT 98
[2023-12-24 12:48] VITALS: BP 103/59; PULSE 58; RESP 18; O2SAT 98
== END 2023-12-24 13:14 | disposition home or self-care (01) ==
PROVIDERS: Anesthesiology; PCP Emergency Medicine; Referring Provider Nurse Practitioner Family; Visit Provider Internal Medicine Gastroenterology
PROC: 0DJ08ZZ Inspection of Upper Intestinal Tract, Via Natural or Artificial Opening Endoscopic (ICD-10-PCS; CPT 43235; principal; 2023-12-24 14:30)
DX: D64.9 Anemia, unspecified (principal); K29.50 Unspecified chronic gastritis without bleeding; K57.30 Diverticulosis of large intestine without perforation or abscess without bleeding; K64.8 Other hemorrhoids; Z86.010 Personal history of colon polyps; I25.10 Atherosclerotic heart disease of native coronary artery without angina pectoris; I11.0 Hypertensive heart disease with heart failure; I50.22 Chronic systolic (congestive) heart failure; I25.5 Ischemic cardiomyopathy; E78.2 Mixed hyperlipidemia; G47.33 Obstructive sleep apnea (adult) (pediatric); E55.9 Vitamin D deficiency, unspecified; Z95.810 Presence of automatic (implantable) cardiac defibrillator; Z79.02 Long term (current) use of antithrombotics/antiplatelets; Z79.84 Long term (current) use of oral hypoglycemic drugs; Z79.82 Long term (current) use of aspirin; Z79.620 Long term (current) use of immunosuppressive biologic; Z95.5 Presence of coronary angioplasty implant and graft; Z87.891 Personal history of nicotine dependence
CPT/HCPCS: 45378; 36415; 85027; 88305; J2371; J2704; J7120

== ENCOUNTER 2024-02-26 08:44 | Outpatient (CLI) | payer MEDICARE, SELFPAY ==
[2024-02-26 09:13] LABS: Hematocrit 46.9 % (42.0-52.0); Hemoglobin 14.9 g/dL (14.0-18.0); Mean Corpuscular HGB Conc 31.8 g/dl (32-36); Mean Corpuscular Hemoglobin 28.3 pg (26-34); Mean Platelet Volume 10.7 fl (7.4-10.4); Platelet Count Result 223 k/mm3 (150-375); Red Blood Count 5.27 M/mm3 (4.6-6.20); White Blood Count 7.5 K/mm3 (4.5-10.0)
[2024-02-26 10:50] LABS: Alanine Aminotransferase 19 U/L (6-50); Albumin Level 4.2 g/dL (3.5-5.1); Alkaline Phosphatase 63 U/L (38-126); Anion Gap 8 mmol/L (4-12); Aspartate Amino Transferase 25 U/L (17-59); Bilirubin,Total 0.9 mg/dL (0.2-1.3); Blood Urea Nitrogen 18 mg/dL (9-20); Calcium 9.3 mg/dL (8.4-10.2); Carbon Dioxide 26 mmol/L (22-30); Chloride 106 mmol/L (98-107); Estimated Glomerular Filt Rate 46; Glucose 116 mg/dL (65-110); Potassium 4.8 mmol/L (3.4-5.0); Sodium 140 mmol/L (137-145)
[2024-02-26 13:53] LABS: Iron 86 ug/dL (49-181)
[2024-02-26 14:03] LABS: Percent Iron Saturation 22 % (20-50)
== END 2024-02-26 08:45 | disposition home or self-care (01) ==
LOC: ANHLAB 08:47
PROVIDERS: PCP Emergency Medicine; Referring Provider Emergency Medicine; Visit Provider Nurse Practitioner Family
DX: D64.9 Anemia, unspecified (principal)
CPT/HCPCS: 36415; 80053; 82728; 83540; 83550; 85027

== ENCOUNTER 2024-07-29 08:27 | Outpatient (CLI) | payer MEDICARE, SELFPAY ==
--- NOTE | ~2024-07-29 | XR_ITS ---
EXAM/ PROCEDURE: XR knee RT min 4V - 07/29/2024 08:38 CDT HISTORY: 74 years old Male with M25.561 - Pain in right knee COMPARISON: None available TECHNIQUE: Four view(s) FINDINGS/ IMPRESSION: There are no fractures or dislocations.Joint space narrowing, subchondral sclerosis, subchondral cyst formation and osteophyte formation, compatible with osteoarthritis. Moderate to severe lateral malika rtment osteoarthritis and moderate patellofemoral compartment osteoarthritis. Reviewed, dictated and finalized at location A.
--- OUTSIDE RECORDS SUMMARY | 2024-07-29 08:35 | XMS_ITS | Referral Summary ---
Author Organization [facility] [place] [address] [place] [phone] Care Team Providers Care Certified Medical Technician Name Role Phone Lavelle Kan MD Primary Care Provide r Encounters Date Type Department Care Team Description 05/23/2024 Orders Only [facility] Cardiology [address] [place] [address] [place] [phone] Hardeep Kay MD 05/18/2024 Orders Only [facility] Cardiology [facility] [address] [place] [phone] Hardeep Kay MD Cardiac defibrillator in situ (Primary Dx); Other cardiomyopathy (HCC) 05/18/2024 9:30 AM DELIVERY MGR Ancillary Procedure [facility] [address] [place] [address] [place] [phone] Cardiomyopathy, unspecified type (HCC); Cardiac defibrillator in situ 05/18/2024 11:00 AM DELIVERY MGR Office Visit [facility] [address] [place] [address] [place] [phone] Hardeep Kay MD Cardiomyopathy, ischemic (Primary Dx); Chronic systolic congestive heart failure (HCC); Cardiac defibrillator in situ [Z95.810]; Coronary artery disease involving tunica-biloxi coronary artery of tunica-biloxi heart without angina pectoris; Status post angioplasty with stent; Diverticulosis from Last 3 Months Allergies No known active allergies Medications finasteride (PROSCAR) 5 mg tablet take 1 tablet by oral route every day 0 0 4 Active empagliflozin (JARDIANCE) 10 mg tablet Take 1 tablet (10 mg total) by mouth daily 90 tablet 6 3 Active evolocumab (Repatha SureClick) 140 mg/mL pen injector Inject 1 mL (140 mg total) under the skin every 14 (fourteen) days 2 mL 4 Active ranolazine ER (RANEXA) 500 mg 12 hr tablet Take 1 tablet (500 mg total) by mouth 2 (two) times a day 60 tablet 4 10/29/19 25 Active nitroglycerin (NITROSTAT) 0.[address] 1 tablet (0.4 mg total) under the tongue every 5 (five) minutes as needed for chest pain May repeat dose q 5 min, up to 3 doses total 30 tablet 1 4 10/29/19 25 Active carvediloL (COREG) 6.25 mg tablet TAKE 1 TABLET BY MOUTH TWICE A DAY 180 tablet 2 4 Active Additional Information Patient taking differently: 12.5 mg oral Daily, Reported on 05/18/2024 atorvastatin (LIPITOR) 20 mg tablet TAKE 1 TABLET BY MOUTH EVERY DAY 90 tablet 3 4 Active clopidogreL (PLAVIX) 75 mg tablet Take 1 tablet (75 mg total) by mouth daily 90 tablet 6 5 05/18/19 26 Active Entresto 49-51 mg tablet TAKE 1 TABLET BY MOUTH TWICE A DAY 180 tablet 3 5 Active Active Problems Problem Noted Date Diagnosed Date Cardiomyopathy 12/15/2021 Atrial fibrillation 12/27/2020 Overview (12/27/2020): Added automatically from request for surgery [id number] Cardiac defibrillator in situ 01/21/2017 Overview (01/03/2021): Biotronik VVI Rivacor ICD imp on 12/31/20 for CM. Karishma - Remote Monitor Assessment & Plan (12/15/2021 1:51 PM CDT): The patient's device was interrogated and found to be functioning appropriately. No substantial changes to programming were made. The patient is enrolled in the [facility], and we will continue to follow with remote monitoring when possible, and in-office device checks when necessary. His device has now functioning appropriately post lead revision. The patient has asked about transferring his longitudinal follow-up back to his wrapper hand, which I am happy to do. I have not scheduled a specific follow up visit, but have asked the patient to contact me if new problems or questions arise. Assessment & Plan (12/06/2020 8:30 AM CDT): Patient is 7 years status post defibrillator placement for the primary prevention of sudden cardiac arrest. He has never required therapies. The patient's device was interrogated and found to be functioning appropriately. No substantial changes to programming were made. In the past, the patient had 2 lead alerts (once in 2019, and once in October 2020) for low impedance. Impedance measurements peer to be normal at this time, in no changes were seen with provocative testing today (or previously). Are options include continued observation, versus invasive lead revision (addition of new DF4 RV lead, cap/abandon old RV lead). Given the isolated, sporadic nature of these 2 alert, in conjunction with the fact that the patient has never been shocked by his device, I recommended continued close remote monitoring. If an additional lead alert occurs, I would then recommend device revision. The patient also had T-wave over-sensing detected earlier; this appears to have been corrected with appropriate programming. The patient will follow-up with me in 12 months for an office visit and twelve- lead ECG. Coronary artery stenosis 03/20/2016 Coronary arteriosclerosis in tunica-biloxi artery 07/11 Overview (07/24/2016): Coronary arteriosclerosis in tunica-biloxi artery Chronic ischemic heart disease 07/11/2014 Overview (07/24/2016): Chronic ischemic heart disease Social History Tobacco Use Types Packs/Day Years Used Date Smoking Tobacco: Former Cigarettes Q uit: 12/08/1998 Smokeless Tobacco: Never Tobacco Cessation:Counseling Given: Not Answered Alcohol Use Standard Drinks/Week Comments Yes 0 (1 standard drink = 0.6 oz pur e alcohol) Sex and Gender Information Value Date Recorded Sex Assigned at Not on file Legal Sex Male 2:00 AM DELIVERY MGR Gender Identity Not on file Sexual Orientation Not on file Last Filed Vital Signs Vital Sign Reading Time Taken Comments Blood Pressure 110/58 05/18/2024 8:52 AM DELIVERY MGR Pulse 58 05/18/2024 8:52 AM DELIVERY MGR Temperature 37.1 C (98.8 F) 12/31/2020 1:49 PM CDT Respiratory Rate 16 12/12/2021 10:24 AM CDT Oxygen Saturation 99% 05/18/2024 8:52 AM DELIVERY MGR Inhaled Oxygen Concentration - - Weight 85.7 kg (189 lb) 05/18/2024 8:52 AM DELIVERY MGR Height 172.7 cm (5' 8 ) 05/18/2024 8:52 AM DELIVERY MGR Body Mass Index 28.74 05/18/2024 8:52 AM DELIVERY MGR Plan of Treatment Not on file Medical Devices Implanted Type Area Corporate Representative Device Identifier Shelf Expiration Date Model / Serial / Lot [employer]ot[employer]ik Inc [id number] Defibrillator Cardiac Rivacor Promri Implantable Df4 Sterile Latex Free 7 Vrt - [id number] - [id number] Implanted:Qty: 1 on 12/31/2020 by Kenny Schwarz MD at [facility] ICD Left: Chest [employer] Inc [id number] 06/17/2022 [id number] / [id number] / Medtronic Cardiac Rhythm Mgmt [id number] Sprint Quattro Secure S 55cm Df-4 Tripolar Screw Defibrillator - [id number] - [id number] Implanted:Qty: 1 on 12/31/2020 by Kenny Schwarz MD at [facility] Lead N/A: Chest Med[employer]onic Inc [id number] 01/15/2022 [id number] / [id number] / Explanted Type Area Corporate Representative Device Identifier Shelf Expiration Date Model / Serial / Lot Icd-04/28/2013 Implanted:2013 (Quantity not on file) Explanted:Qty: 1 on 12/31/2020 by Kenny Schwarz MD at [facility] ICD Chest [employer]ik Inc CM ILESTO 7 VRT / [id number] / Procedures Procedure Name Priority Date/Time Associated Diagnosis Comments DEVICE CHECK - IN OFFICE Routine 05/18/2024 8:28 AM DELIVERY MGR Cardiomyopathy, unspecified type (HCC) Cardiac defibrillator in situ from Last 3 Months Results * DEVICE CHECK - IN OFFICE (05/18/2024 8:28 AM DELIVERY MGR) Anatomical Region Laterality Modality Other Narrative 05/19/2024 10:06 AM DELIVERY MGR Biotronik VVI Rivacor ICD. Dx; CM. DOI 12/31/2020- [place]. Grimaldo. Biotronik Remote Monitoring. Supervising MD: Dr Kay. Office interrogation of VVI ICD demonstrated appropriate device function. Left pectoral incision well approximated without redness, drainage, or edema noted. Battery function: Ok, 100% remaining battery life to AYESHA. Charge time: 9.4 seconds. Appropriate lead measurements noted-see report for results. Presenting rhythm- VS (SR). CONSUMER LOAN SPECIALIST- 0 %. No Ventricular tachy arrhythmias recorded. Medications; Plavix, ASA 81 mg, Coreg. No programming changes made to device settings. See scanned report. Office device f/u due 13-15 months. Biotronik remote f/u 08/23/2024. Ame Weinberg, RN Hardeep Kay MD [facility] PROCEDURES F inal Result from Last 3 Months Insurance [employer] MEDICARE [facility] T MEDICARE Care Teams Certified Medical Technician Relationship Specialty Start Date End Date Lavelle Kan MD [address] [place] [address] PCP - General 07/18/16
--- OUTSIDE RECORDS SUMMARY | 2024-07-29 08:35 | XMS_ITS | Encounter Summary ---
Author Organization [facility] Address [address] [address] Care Team Providers Care Unit Control Clerk Name Role Phone Lavelle Kan MD Primary Care Provide r Lavelle Kan MD Primary Care Provide r Encounter Details Date Type Department Care Team (Late st Contact Info) Description 07/01/2016 Orders Only [facility] ProviderGraham MD [address] [place], [place] [id number] Social History Tobacco Use Types Packs/Day Years Used Date Smoking Tobacco: Former Cigarettes Q uit: 04/20/1997 Alcohol Use Standard Drinks/Week Comments Yes 0 (1 standard drink = 0.6 oz pur e alcohol) Sex and Gender Information Value Date Recorded Sex Assigned at Not on file 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 Historical Provider [facility] SHARLENE LEWIS Final Result documented in this encounter Visit Diagnoses Not on filedocumented in this encounter Care Teams Unit Control Clerk Relationship Specialty Start Date End Date Lavelle Kan MD [address] [place] [address] PCP - General 07/18/16 Lavelle Kan MD [address] [place] [address] PCP - General 09/12/15 07/17/16 documented as of this encounter
--- OUTSIDE RECORDS SUMMARY | 2024-07-29 08:35 | XMS_ITS | Clinical Summary ---
Author Organization [facility] [address] Address [address] [place] [address] Care Team Providers Care Automation Machine Operator Name Role Phone Lavelle Kan MD Primary Care Provide r Allergies No known active allergies Medications finasteride [...] skin every 14 (fourteen) days 2 mL 11 4 Active ranolazine ER (RANEXA) 500 mg 12 hr tablet Take 1 tablet (500 mg total) by mouth 2 (two) times a day 60 tablet 11 4 10/29/19 25 Active nitroglycerin (NITROSTAT) 0.4 [...] (12/27/2020): Added automatically from request for surgery [id number] Cardiac defibrillator in situ 01/21/2017 Overview (01/03/2021): Biotronik VVI Rivacor ICD imp on 12/31/20 for CM. Immunity Projectinik - Remote Monitor Assessment & Plan (12/15/2021 [...] transferring his longitudinal follow-up back to his master mechanic, which I am happy to do. I [...] Coronary artery stenosis 03/20/2016 Coronary arteriosclerosis in [place] artery 07/11 Overview (07/24/2016): Coronary arteriosclerosis in [place] artery Chronic ischemic heart disease 07/11/2014 Overview (07/24/2016): Chronic ischemic heart disease Encounters Date Type Department Care Team Description 05/23/2024 Orders Only [facility] Cardiology [address] [place] [phone] Hardeep Kay MD 05/18/2024 11:00 AM RADIOLOGIST DIAGNOSTIC Office Visit [address] [phone] Hardeep Kay MD Cardiomyopathy, ischemic (Primary Dx); Chronic systolic congestive heart failure (HCC); Cardiac defibrillator in situ [Z95.810]; Coronary artery disease involving [place] coronary artery of [place] heart without angina pectoris; Status post angioplasty with stent; Diverticulosis 05/18/2024 9:30 AM RADIOLOGIST DIAGNOSTIC Ancillary Procedure [facility] Cardiology [address] [place] [address] [place] [phone] Cardiomyopathy, unspecified type (HCC); Cardiac defibrillator in situ 05/18/2024 Orders Only [facility] Cardiology [facility] [address] [place] [phone] Hardeep Kay MD Cardiac defibrillator in situ (Primary Dx); Other cardiomyopathy (HCC) from Last 3 Months Surgical History Surgery Date Site/Laterality Comments OTHER SURGICAL HISTORY left eye surgery, hernia repair Medical History Medical History Date Comments Cardiovascular disease Coronary Artery Disease Myocardial infarction (HCC) 2001 Myoc ardial infarction Hypertension Hypertension Hx Other Medical Sleep Apnea, CP AP Hx Other Medical HLP Hx Other Medical Congestive Hear t Failure/ischemic LV dysfunction Arthritis Back and neck Heart disease See chart Social History Tobacco Use Types Packs/Day Years Used Date Smoking Tobacco: Former Cigarettes Q uit: 12/08/1998 Smokeless Tobacco: Never Tobacco Cessation:Counseling Given: Not Answered Alcohol Use Standard Drinks/Week Comments Yes 0 (1 standard drink = 0.6 oz pur e alcohol) Sex and Gender Information Value Date Recorded Sex Assigned at Not on file Legal Sex Male 2:00 AM RADIOLOGIST DIAGNOSTIC Gender Identity Not on file Sexual Orientation Not on file Obstetrics History Last Filed Vital Signs Vital Sign Reading Time Taken Comments Blood Pressure 110/58 05/18/2024 8:52 AM RADIOLOGIST DIAGNOSTIC Pulse 58 05/18/2024 8:52 AM RADIOLOGIST DIAGNOSTIC Temperature 37.1 C (98.8 F) 12/31/2020 1:49 PM CDT Respiratory Rate 16 12/12/2021 10:24 AM CDT Oxygen Saturation 99% 05/18/2024 8:52 AM RADIOLOGIST DIAGNOSTIC Inhaled Oxygen Concentration - - Weight 85.7 kg (189 lb) 05/18/2024 8:52 AM RADIOLOGIST DIAGNOSTIC Height 172.7 cm (5' 8 ) 05/18/2024 8:52 AM RADIOLOGIST DIAGNOSTIC Body Mass Index 28.74 05/18/2024 8:52 AM RADIOLOGIST DIAGNOSTIC Plan of Treatment Health Maintenance Due Date Last Done Comments Depression Screening 1950 Fall Risk Assessment 1950 Hepatitis C Screening 1950 DTaP/Tdap/Td Vaccine (1 - Tdap) 02/08/1959 Hepatitis B Screening 02/08/1966 Pneumococcal vaccine 65+ (1 of 2 - PCV) 02/08/1967 Zoster Vaccine (1 of 2) 02/08/1998 Abdominal Aortic Aneurysm (A AA) Screen 02/08/2013 Well Visit 65+ 02/08/2013 Covid-19 Vaccine (3 - 2023-2 5 season) 2023 06/19/2020, 05/17/2020 Influenza Vaccine (Season Ended) 2024 01/22/2021, 01/27/2020, 02/23/2015, Additional history exists Medical Devices Implanted Type Area Sausage Cooker Device Identifier Shelf Expiration Date Model / Serial / Lot Socogamek Inc [id number] Defibrillator Cardiac Rivacor Promri Implantable Df4 Sterile Latex Free 7 Vrt - [id number] - [id number] Implanted:Qty: 1 on 12/31/2020 by Kenny Schwarz MD at [facility] ICD Left: Chest Biotronik Inc [id number] 06/17/2022 [id number] / [id number] / Medtronic Cardiac Rhythm Mgmt [id number] Sprint Quattro Secure S 55cm Df-4 Tripolar Screw Defibrillator - [id number] - [id number] Implanted:Qty: 1 on 12/31/2020 by Kenny Schwarz MD at [facility] Lead N/A: Chest Medtronic Inc [id number] 01/15/2022 [id number] / [id number] / Explanted Type Area Sausage Cooker Device Identifier Shelf Expiration Date Model / Serial / Lot Icd-04/28/2013 Implanted:2013 (Quantity not on file) Explanted:Qty: 1 on 12/31/2020 by Kenny Schwarz MD at [facility] ICD Chest Biotronik Inc CM ILESTO 7 VRT / [id number] / Procedures Procedure Name Priority Date/Time Associated Diagnosis Comments DEVICE CHECK - IN OFFICE Routine 05/18/2024 8:28 AM RADIOLOGIST DIAGNOSTIC Cardiomyopathy, unspecified type (HCC) Cardiac defibrillator in situ from Last 3 Months Results * DEVICE CHECK - IN OFFICE (05/18/2024 8:28 AM RADIOLOGIST DIAGNOSTIC) Anatomical Region Laterality Modality Other Narrative 05/19/2024 10:06 AM RADIOLOGIST DIAGNOSTIC Sensorist VVI Rivacor ICD. Dx; CM. DOI 12/31/2020- Karishma. Re. Sensorist Remote Monitoring. Supervising MD: Dr Kay. Office interrogation of VVI ICD demonstrated appropriate device function. Left pectoral incision well approximated without redness, drainage, or edema noted. Battery function: Ok, 100% remaining battery life to AYESHA. Charge time: 9.4 seconds. Appropriate lead measurements noted-see report for results. Presenting rhythm- VS (SR). DESULFURIZER OPERATOR- 0 %. No Ventricular tachy arrhythmias recorded. Medications; Plavix, ASA 81 mg, Coreg. No programming changes made to device settings. See scanned report. Office device f/u due 13-15 months. Grazeronik remote f/u 08/23/2024. Ame Weinberg, RN Hardeep Kay MD CV CARDIAC SERVICES PROCEDURES F inal Result from Last 3 Months Insurance [facility] MEDICARE [facility] MEDICARE Care Teams Automation Machine Operator Relationship Specialty Start Date End Date Lavelle Kan MD [address] [place] [address] PCP - General 07/18/16
--- OUTSIDE RECORDS SUMMARY | 2024-07-29 08:35 | XMS_ITS | CONTINUITY OF CARE DOCUMENT ---
Author Name spencer palmer Address Unknown Organization [facility] Address [address] [facility] [address] [place] [address] Phone [phone] Care Team Providers Care Stogie Packer Name Role Phone spencer palmer Unavailable Unavailable
== END 2024-07-29 08:28 | disposition home or self-care (01) ==
LOC: ANHIMG 08:28
PROVIDERS: PCP Emergency Medicine; Visit Provider Emergency Medicine
DX: M17.11 Unilateral primary osteoarthritis, right knee (principal)
CPT/HCPCS: 73564

== ENCOUNTER 2024-08-24 09:53 | Outpatient (RCR) | payer SELFPAY | END 2024-08-24 23:59 | disposition home or self-care (01) | LOC: ANHAUDIO 09:53 | PROVIDERS: PCP Emergency Medicine; Visit Provider Emergency Medicine | DX: Z46.1 Encounter for fitting and adjustment of hearing aid (principal) | CPT/HCPCS: V5257 ==

== ENCOUNTER 2024-10-04 07:09 | Outpatient (CLI) | payer MEDICARE, SELFPAY ==
--- OUTSIDE RECORDS SUMMARY | 2024-10-04 07:14 | XMS_ITS | Encounter Summary ---
Author Organization [facility] Address [address] [address] Care Team Providers Care Director Of Epidemiology Name Role Phone Lavelle Kan MD Primary Care Provide r Lavelle Kan MD Primary Care Provide r Encounter Details Date Type Department Care Team (Late st Contact Info) Description 07/01/2016 Orders Only [facility] ProviderGraham MD [address] [place], [place] [id number] Social History Tobacco Use Types Packs/Day Years Used Date Smoking Tobacco: Former Cigarettes Q uit: 04/20/1997 Alcohol Use Standard Drinks/Week Comments Yes 0 (1 standard drink = 0.6 oz pur e alcohol) Sex and Gender Information Value Date Recorded Sex Assigned at Not on file Legal Sex Male 2:00 AM NEIGHBORHOOD CONSERVATION OFFICER Gender Identity Not on file Sexual Orientation [...] on filedocumented in this encounter Care Teams Director Of Epidemiology Relationship Specialty Start Date End Date Lavelle Kan MD [address] [place] [address] PCP - General 07/18/16 Lavelle Kan MD [address] [place] [address] PCP - General 09/12/15 07/17/16 documented as of this encounter
--- OUTSIDE RECORDS SUMMARY | 2024-10-04 07:14 | XMS_ITS | CONTINUITY OF CARE DOCUMENT ---
Author Name spencer palmer Address Unknown Organization [facility] Address [address] [facility] [address] [place] [address] Phone [phone] Care Team Providers Care Woods Warden Name Role Phone spencer palmer Unavailable Unavailable
--- OUTSIDE RECORDS SUMMARY | 2024-10-04 07:15 | XMS_ITS | Clinical Summary ---
Author Organization [facility] [address] Address [address] [place] [address] Care Team Providers Care Online Merchandising Manager Name Role Phone Lavelle Kan MD Primary Care Provide r Allergies No known active allergies Medications finasteride (PROSCAR) 5 mg tablet take 1 tablet by oral route every day 0 0 01/17/2014 Active evolocumab (Repatha SureClick) 140 mg/mL pen injector Inject 1 mL (140 mg total) under the skin every 14 (fourteen) days 2 mL 11 10/20/2023 Active nitroglycerin (NITROSTAT) 0.[address] 1 tablet (0.4 mg total) under the tongue every 5 (five) minutes as needed for chest pain May repeat dose q 5 min, up to 3 doses total 30 tablet 1 10/29/2023 Active atorvastatin (LIPITOR) 20 mg tablet TAKE 1 TABLET BY MOUTH EVERY DAY 90 tablet 3 02/26/2024 Active clopidogreL (PLAVIX) 75 mg tablet Take 1 tablet (75 mg total) by mouth daily 90 tablet 6 05/18/2024 Active Entresto 49-51 mg tablet TAKE 1 TABLET BY MOUTH TWICE A DAY 180 tablet 3 06/06/2024 Active Jardiance 10 mg tablet TAKE 1 TABLET BY MOUTH EVERY DAY 90 tablet 6 08/17/2024 Active ranolazine ER (RANEXA) 500 mg 12 hr tablet TAKE 1 TABLET BY MOUTH TWICE A DAY 180 tablet 1 08/30/2024 Active carvediloL (COREG) 6.25 mg tablet TAKE 1 TABLET BY MOUTH TWICE A DAY 180 tablet 1 08/30/2024 Active Active Problems Problem Noted Date Diagnosed Date Cardiomyopathy 12/15/2021 Atrial fibrillation 12/27/2020 Overview (12/27/2020): Added automatically from request for surgery [id number] Cardiac defibrillator in situ 01/21/2017 Overview (01/03/2021): Biotronik VVI Rivacor ICD imp on 12/31/20 for CM. Vaninik - Remote Monitor Assessment & Plan (12/15/2021 [...] transferring his longitudinal follow-up back to his hollock maker, which I am happy to do. I [...] Coronary artery stenosis 03/20/2016 Coronary arteriosclerosis in [place] artery 07/11 Overview (07/24/2016): Coronary arteriosclerosis in [place] artery Chronic ischemic heart disease 07/11/2014 Overview (07/24/2016): Chronic ischemic heart disease Encounters Date Type Department Care Team Description 08/23/2024 7:45 AM CDT Ancillary Procedure [facility] Cardiology [address] [place] [phone] Cardiac defibrillator in situ (Primary Dx); Cardiomyopathy, unspecified type (HCC) from Last 3 Months Surgical History [...] on file Legal Sex Male 2:00 AM FLIGHT CONTROL MANAGER Gender Identity Not on file Sexual Orientation Not on file Obstetrics History Last Filed Vital Signs Vital Sign Reading Time Taken Comments Blood Pressure 110/58 05/18/2024 8:52 AM FLIGHT CONTROL MANAGER Pulse 58 05/18/2024 8:52 AM FLIGHT CONTROL MANAGER Temperature 37.1 C (98.8 F) 12/31/2020 1:49 PM CDT Respiratory Rate 16 12/12/2021 10:24 AM CDT Oxygen Saturation 99% 05/18/2024 8:52 AM FLIGHT CONTROL MANAGER Inhaled Oxygen Concentration - - Weight 85.7 kg (189 lb) 05/18/2024 8:52 AM FLIGHT CONTROL MANAGER Height 172.7 cm (5' 8) 05/18/2024 8:52 AM FLIGHT CONTROL MANAGER Body Mass Index 28.74 05/18/2024 8:52 AM FLIGHT CONTROL MANAGER Plan of Treatment Health Maintenance Due Date [...] history exists Medical Devices Implanted Type Area Claims Investigator Device Identifier Shelf Expiration Date Model / Serial / Lot Biotronik Inc [id number] Defibrillator Cardiac Rivacor Promri Implantable Df4 Sterile Latex Free 7 Vrt - [id number] - [id number] Implanted:Qty: 1 on 12/31/2020 by Kenny Schwarz MD at [facility] ICD Left: Chest Biotronik Inc [id number] 06/17/2022 [id number] / [id number] / Medtronic Cardiac Rhythm Mgmt [id number] Sprint Quattro Secure S 55cm Df-4 Tripolar Screw Defibrillator - [id number] - [id number] Implanted:Qty: 1 on 12/31/2020 by Kenny Schwarz MD at [facility] Lead N/A: Chest Medtronic Inc [id number] 01/15/2022 [id number] / [id number] / Explanted Type Area Claims Investigator Device Identifier Shelf Expiration Date Model / Serial / Lot Icd-04/28/2013 Implanted:2013 (Quantity not on file) Explanted:Qty: 1 on 12/31/2020 by Kenny Schwarz MD at [facility] ICD Chest Biotronik Inc CM ILESTO 7 VRT / [id number] / Procedures Procedure Name Priority Date/Time Associated Diagnosis Comments DEVICE CHECK - REMOTE Routine 08/23/2024 10:29 AM CDT Cardiomyopathy, unspecified type (HCC) from Last 3 Months Results * DEVICE CHECK - REMOTE (08/23/2024 10:29 AM CDT) Anatomical Region Laterality Modality Other Narrative 08/25/2024 1:17 PM CDT Biotronik VVI Rivacor ICD imp on 12/31/20 for CM. Verivue - Quadrille Ingénierieronik Remote Monitor. Routine VVI ICD remote. Normal device function. Battery function-3.10V-THOMAS, 100% remaining battery longevity to AYESHA. Charge time-9.5 seconds. Appropriate lead measurements noted. Presenting rhythm-VS, regular 60 bpm. VPaced-0%. No AT/AF episodes noted. No Ventricular tachy arrhythmias noted. Medications; Plavix, Coreg, Entresto, Repatha. See scanned report. Biotronik remote f/u 11/29/2024. Office device f/u and ROV with Dr Kay scheduled 06/14/2025. Ame Weinberg, RN Hardeep Kay MD CV CARDIAC SERVICES PROCEDURES F inal Result from Last 3 Months Insurance [employer] MEDICARE [facility] MEDIC[facility] Address: [facility] [id number] [place] [address] [facility] MEDICARE Care Teams Online Merchandising Manager Relationship Specialty Start Date End Date Lavelle Kan MD [address] [place] [address] PCP - General 07/18/16
--- OUTSIDE RECORDS SUMMARY | 2024-10-04 07:15 | XMS_ITS | Referral Summary ---
Author Organization [facility] [address] Address [address] [place] [address] Care Team Providers Care Nuclear Medical Technologist Name Role Phone Lavelle Kan MD Primary Care Provide r Encounters Date Type Department Care Team Description 08/23/2024 7:45 AM CDT Ancillary Procedure [facility] Cardiology [address] [place] [phone] Cardiac defibrillator in situ (Primary Dx); Cardiomyopathy, unspecified type (HCC) from Last 3 Months Allergies No known [...] 3 doses total 30 tablet 1 10/29/2023 5 Active atorvastatin (LIPITOR) 20 mg tablet TAKE 1 TABLET BY MOUTH EVERY DAY 90 tablet 3 02/26/2024 Active clopidogreL (PLAVIX) 75 mg tablet Take 1 tablet (75 mg total) by mouth daily 90 tablet 6 05/18/2024 6 Active Entresto 49-51 mg tablet TAKE 1 [...] (12/27/2020): Added automatically from request for surgery [id number] Cardiac defibrillator in situ 01/21/2017 Overview (01/03/2021): Biotronik VVI Rivacor ICD imp on 12/31/20 for CM. Sathyak - Remote Monitor Assessment & Plan (12/15/2021 [...] transferring his longitudinal follow-up back to his liner checker, which I am happy to do. I [...] Coronary artery stenosis 03/20/2016 Coronary arteriosclerosis in [place] artery 07/11 Overview (07/24/2016): Coronary arteriosclerosis in [place] artery Chronic ischemic heart disease 07/11/2014 Overview [...] on file Legal Sex Male 2:00 AM HIGH LIFT DRIVER Gender Identity Not on file Sexual Orientation Not on file Last Filed Vital Signs Vital Sign Reading Time Taken Comments Blood Pressure 110/58 05/18/2024 8:52 AM HIGH LIFT DRIVER Pulse 58 05/18/2024 8:52 AM HIGH LIFT DRIVER Temperature 37.1 C (98.8 F) 12/31/2020 1:49 PM CDT Respiratory Rate 16 12/12/2021 10:24 AM CDT Oxygen Saturation 99% 05/18/2024 8:52 AM HIGH LIFT DRIVER Inhaled Oxygen Concentration - - Weight 85.7 kg (189 lb) 05/18/2024 8:52 AM HIGH LIFT DRIVER Height 172.7 cm (5' 8) 05/18/2024 8:52 AM HIGH LIFT DRIVER Body Mass Index 28.74 05/18/2024 8:52 AM HIGH LIFT DRIVER Plan of Treatment Not on file Medical Devices Implanted Type Area Photogrammetric Surveyor Device Identifier Shelf Expiration Date Model / Serial / Lot Biotronik Inc [id number] Defibrillator Cardiac Rivacor Promri Implantable Df4 Sterile Latex Free 7 t - [id number] - [id number] Implanted:Qty: 1 on 12/31/2020 by Kenny Schwarz MD at [facility] ICD Left: Chest Biotronik Inc [id number] 06/17/2022 [id number] / [id number] / Medtronic Cardiac Rhythm Mgmt [id number] Sprint Quattro Secure S 55cm Df-4 Tripolar Screw Defibrillator - [id number] - [id number] Implanted:Qty: 1 on 12/31/2020 by Kenny Schwarz MD at [facility] Lead N/A: Chest Medtronic Inc [id number] 01/15/2022 [id number] / [id number] / Explanted Type Area Photogrammetric Surveyor Device Identifier Shelf Expiration Date Model / Serial / Lot Icd-04/28/2013 Implanted:2013 (Quantity not on file) Explanted:Qty: 1 on 12/31/2020 by Kenny Schwarz MD at [facility] ICD Chest Biotronik Inc CM ILESTO 7 VRT / [id number] / Procedures Procedure Name Priority Date/Time Associated Diagnosis Comments DEVICE CHECK - REMOTE Routine 08/23/2024 10:29 AM CDT Cardiomyopathy, unspecified type (HCC) from Last 3 Months Results * DEVICE CHECK - REMOTE (08/23/2024 10:29 AM CDT) Anatomical Region Laterality Modality Other Narrative 08/25/2024 1:17 PM CDT Jolancerronik VVI Rivacor ICD imp on 12/31/20 for CM. [employer] Remote Monitor. Routine VVI ICD remote. Normal device function. Battery function-3.10V-THOMAS, 100% remaining battery longevity to AYESHA. Charge time-9.5 seconds. Appropriate lead measurements noted. Presenting rhythm-VS, regular 60 bpm. VPaced-0%. No AT/AF episodes noted. No Ventricular tachy arrhythmias noted. Medications; Plavix, Coreg, Entresto, Repatha. See scanned report. Biotronik remote f/u 11/29/2024. Office device f/u and ROV with Dr Kay scheduled 06/14/2025. Ame Weinberg MIRYAM Hardeep Kay MD CV CARDIAC SERVICES PROCEDURES F inal Result from Last [address] [place] [address] [facility] [address] [facility] MEDICARE Care Teams Nuclear Medical Technologist Relationship Specialty Start Date End Date Lavelle Kan MD [address] [place] [address] PCP - General 07/18/16
[2024-10-04 07:50] LABS: Basophils Percent Auto 0.4 % (0.2-1.2); Eosinophils Absolute Auto 0.2 K/mm3 (0-0.3); Eosinophils Percent Auto 2.9 % (0-4.4); Hematocrit 47.8 % (42.0-52.0); Hemoglobin 15.5 g/dL (14.0-18.0); Immature Granulocyte Absolute 0.02 K/mm3 (0.00-0.031); Immature Granulocyte Percent A 0.3 % (0-0.5); Lymphocytes Absolute Auto 2.35 K/mm3 (0.9-3.2); Mean Corpuscular HGB Conc 32.4 g/dl (32-36); Mean Corpuscular Hemoglobin 30.1 pg (26-34); Mean Corpuscular Volume 92.8 fl (80-100); Mean Platelet Volume 11.3 fl (7.4-10.4); Monocytes Absolute Auto 0.6 K/mm3 (0.1-0.6); Monocytes Percent Auto 8.4 % (2.6-8.5); Neutrophils Absolute Auto 4.1 K/mm3 (1.3-6.7); Platelet Count Result 190 k/mm3 (150-375); Red Blood Count 5.15 M/mm3 (4.6-6.20); Red Cell Distribution Width 13.4 % (11.5-14.5); White Blood Count 7.3 K/mm3 (4.5-10.0)
[2024-10-04 08:09] LABS: Alanine Aminotransferase 19 U/L (6-50); Alkaline Phosphatase 56 U/L (38-126); Anion Gap 7 mmol/L (4-12); Aspartate Amino Transferase 26 U/L (17-59); Bilirubin,Total 0.9 mg/dL (0.2-1.3); Blood Urea Nitrogen 16 mg/dL (9-20); Carbon Dioxide 23 mmol/L (22-30); Chloride 109 mmol/L (98-107); Cholesterol 87 mg/dL (0-200); Estimated Glomerular Filt Rate 50; Glucose 110 mg/dL (65-110); HDL Direct 44 mg/dL; Iron 124 ug/dL (49-181); Potassium 4.4 mmol/L (3.4-5.0); Sodium 139 mmol/L (137-145); Total Protein 6.6 g/dL (6.3-8.2); Triglycerides 150 mg/dL (<150)
[2024-10-04 08:18] LABS: Percent Iron Saturation 34 % (20-50)
[2024-10-04 08:33] LABS: LDL Cholesterol Direct < 30 mg/dL
[2024-10-04 10:16] LABS: Vitamin D 25 Hydroxy 31.7 ng/mL
[2024-10-04 10:29] LABS: Creatinine Urine 128.7 mg/dL
[2024-10-04 10:32] LABS: MALB Creatinine Ratio 36.2 mg/g (0-30); Microalbumin Urine Random 46.6 mg/L (0-16.7)
[2024-10-04 11:16] LABS: Hemoglobin A1C 5.7 % (<5.7)
== END 2024-10-04 07:10 | disposition home or self-care (01) ==
LOC: ANHLAB 07:12
PROVIDERS: PCP Emergency Medicine; Referring Provider Orthopaedic Surgery; Visit Provider Emergency Medicine
DX: E11.9 Type 2 diabetes mellitus without complications (principal); D64.9 Anemia, unspecified; E78.5 Hyperlipidemia, unspecified; E55.9 Vitamin D deficiency, unspecified; I10 Essential (primary) hypertension
CPT/HCPCS: 36415; 80053; 80061; 82043; 82306; 83036; 83540; 83550; 85025